=== PATIENT | male | born 1985 | race Caucasian/White ===

== ENCOUNTER 2017-05-24 20:51 | Emergency (ER) | payer OTHER ==
[~2017-05-24] VITALS: Ht 177.8 cm; Wt 145.1 kg
[2017-05-24 20:54] VITALS: BP 140/90
--- NOTE | 2017-05-24 21:11 | NUR ---
Patient ambulated to bed 06.
--- NOTE | 2017-05-24 21:11 | NUR ---
31 Y/O M W/C/O POSSIBLE INSECT BITES TO LOWER/ UPPER EXTREMITIES AND LOWER BACK X 1 WK. DENIES ANY FEVER, ONLY C/O PAIN AND CHILLS. DENIES ANY SOB, OR MED HX. NO S/S OF DISTRESS NOTED AT THE MOMENT. ER MD MADE AWARE.
--- NOTE | 2017-05-24 21:35 | NUR ---
PT RESTING IN BED, NO S/S OF DISTRESS NOTED AT THE MOMENT, WILL CONT TO MONITOR.
--- NOTE | 2017-05-24 22:11 | NUR ---
Dr. Patiño evaluating patient at bedside.
[2017-05-24 22:28] VITALS: BP 133/75
--- NOTE | 2017-05-24 22:28 | NUR ---
Patient discharged with v/s stable. Written and verbal after care instructions given and explained. Patient alert, oriented and verbalized understanding of instructions. Ambulatory with steady gait. All questions addressed prior to discharge. ID band removed. Patient advised to follow up with PMD IN 2-3 DAYS OR RETURN TO ER IF CONDITION WORSENS. Rx of BACTRIM AND KEFLEX given. Patient educated on indication of medication including possible reaction and side effects. Opportunity to ask questions provided and answered.
== END 2017-05-24 22:28 | disposition home or self-care (01) ==
LOC: MED 20:51
DX: L03.115 Cellulitis of right lower limb (principal); F19.10 Other psychoactive substance abuse, uncomplicated
CPT/HCPCS: 99283